=== PATIENT | female | born 1940 ===

== ENCOUNTER 2017-07-19 13:49 | Outpatient (CLI) | payer MEDICARE ==
--- OUTSIDE RECORDS SUMMARY | 2017-07-19 15:43 | XMS | Clinical Summary ---
:1940 Author Organization [facility] Address [address] [place] [address] Phone Care Team Providers Name Role Phone , Primary Care Provider Unavailable Allergies Not on File Current Medications Not on file Active Problems Not on file Social History Tobacco Use Types Packs/Day Years Used Date Never Assessed Sex Assigned at Date Recorded Not on file Last Filed Vital Signs Not on file Plan of Treatment Not on file Results Not on filefrom Last 3 Months
--- NOTE | 2017-07-19 16:38 | SJPRAD ---
FRONTAL AND LATERAL IMAGING CHEST: 07/19/17 COMPARISON: None. HISTORY: Evaluate chest for surgical clearance. FINDINGS: There is no pneumothorax, pleural fluid, focal consolidation, or alveolar edema. Heart and mediastin al contours appear grossly unremarkable. IMPRESSION: No acute findings. POS: [facility]
== END 2017-07-19 13:50 | disposition home or self-care (01) ==
LOC: MWLC RAD 13:49
PROVIDERS: ATTEND Family Medicine
DX: Z01.810 Encounter for preprocedural cardiovascular examination (principal)

== ENCOUNTER 2017-09-17 16:47 | Inpatient (IN) | payer MEDICARE, OTHER ==
[2017-09-17] MEDS ORDERED: hydrALAZINE 20 MG/ML VIAL ONE (18:51)
[2017-09-17] MEDS ORDERED: cloNIDine 0.1 MG TAB ONE (20:04)
[2017-09-17 21:25] VITALS: BMI 36.9
[2017-09-17] MEDS ORDERED: Labetalol HCl 100 MG/20 ML VIAL SLOW IVP PRN (22:56)
[2017-09-17] MEDS ORDERED: Dextrose 50% Abboject 50 ML SYRINGE SLOW IVP PRN (22:56)
[2017-09-17] MEDS ORDERED: Ondansetron ODT 4 MG TAB PO PRN (22:56)
[2017-09-17] MEDS ORDERED: Furosemide 40 MG TAB PO SCH (22:56)
[2017-09-17] MEDS ORDERED: HYDROcodone/Acetaminophen 5/325 mg Tablet PO PRN (22:56)
[2017-09-17] MEDS ORDERED: Doxazosin Mesylate 4 MG TAB PO SCH (22:56)
[2017-09-17] MEDS ORDERED: HumaLOG 300 UNITS/3 ML VIAL SC PRN (22:56)
[2017-09-17] MEDS ORDERED: hydrALAZINE 25 MG TAB PO SCH (22:56)
[2017-09-17] MEDS ORDERED: Dextrose 5% in Water 1,000 ML IV PRN (22:56)
[2017-09-17] MEDS ORDERED: Acetaminophen 325 MG TAB PO PRN (22:56)
[2017-09-17] MEDS ORDERED: HYDROcodone/Acetaminophen 10/325 mg Tablet PO PRN (22:56)
[2017-09-17] MEDS ORDERED: Nitroglycerin 2% Ointment 1 INCH/1 GM Packet TOP SCH (23:00)
[2017-09-17] MEDS: Enoxaparin Sodium 30 MG/0.3 ML SYRINGE SC SCH (23:32)
[2017-09-17 23:55] LABS: CKMB 0.8 ng/mL (0-6.6); Troponin I 0.013 ng/mL (< 0.028)
--- NOTE | 2017-09-18 02:46 | HP ---
DATE OF ADMISSION: 09/17/2017 TIME OF SERVICE: 2200 hours. PRIMARY CARE PHYSICIAN: Juana Sam MD PRIMARY AREA SUPERVISOR: Ganga Garcia MD CHIEF COMPLAINT: Slurred speech and headache. HISTORY OF PRESENT ILLNESS: Ms. Jurado is a 77-year-old female with a history of breast cancer, di abetes, hypertension, chronic kidney disease, hyperlipidemia who presented to the emergency [facility] in [employer] today for really headache. She states 3 days ago, she had a 50-minute episode, where her speech was kind of slurred. After that resolved, she had a headache that persisted for the better part of 24 hours. The headache finally r esolved and was gone until this morning. Because of the severity last time, [facility]. In retrospect, she notes that her blood pressure has slowly been getting higher and higher over the l ast couple of weeks. On arrival to the outside ER, her blood pressure was elevated. A CT scan of the brain was done and was negative for acute intracranial abnormalities. She was sent here for TIA workup. On arrival, she was noted to have hypertensive urgency and likely hypertensive encephalopathy causing her symptoms. Currently, she has no headache. She has no neurologic deficits. She denies any numb ness, tingling, double vision. No dizziness or weakness. PAST MEDICAL HISTORY: 1. Breast cancer x2 spots in the same breast, currently in remission. 2. Diabetes mellitus type 2, currently off medications. 3. Hypertension, decreasingly controlled. 4. Uterine cancer, status post hysterectomy and in remission. 5. Hyperlipidemia. 6. Chronic kidney disease 3, followed by Dr. Garcia. PAST SURGICAL HISTORY: Include, 1. Bilateral cataracts. She is currently waiting to have these done, has not actually had her catar acts removed. 2. Colon resection. She had about 8 inches removed back in 2011. 3. Left breast lumpectomy in 2007 and left radical mastectomy in 2008. 4. Cholecystectomy in 1962. 5. Hysterectomy in 2004 with bilateral salpingo-oophorectomy. HOME MEDICATIONS: 1. Verapamil 240 mg daily, took this morning. 2. Hydralazine 100 mg p.o. t.i.d., took this morning. 3. Doxazosin 8 mg p.o. at bedtime. 4. Aspirin 81 mg daily. 5. Caltrate 1000 mg daily. 6. Flaxseed 1300 mg daily. 7. Multivitamin daily. ALLERGIES: PENICILLIN causes hives. FAMILY HISTORY: Negative for clotting or bleeding disorder. No immune dysfunction. SOCIAL HISTORY: Significant for a rare social alcohol. No IV drug use. She quit smoking greater th an 10 years ago, smoked about a pack per day for some 30+ years. She wishes to be a full code. Her , Dante, is her medical decision maker should she become incapacitated. His home number is [phone] and his cell phone number is [phone]. He is not currently present. REVIEW OF SYSTEMS: Ten-point review of systems was performed, negative for all other systems except as stated as per HPI. PHYSICAL EXAMINATION: VITAL SIGNS: Temperature 97.8, pulse 60, blood pressure 201/67, respiratory rate 20, saturating 95% on room air. GENERAL: She is awake. She is alert. She is oriented x3. She is an obese white female, appears to be in no distress. HEENT: She is normocephalic and atraumatic. Pupils equal and reactive to light bilaterally. Mucous membranes moist. She has no visible lesion. No thrush. NECK: Supple. She has no lymphadenopathy. No JVD. No thyromegaly. Normal carotid upstrokes. The re are no bruits. CHEST: Lungs are clear. LUNGS: She has good air movement. Symmetrical chest excursion. No wheezes. No rales. No rhonchi. CARDIOVASCULAR: She has normal S1 and S2. She has normal cardiac and regular. She has no audible m urmurs. ABDOMEN: Obese. It is nontender and nondistended. No rebound, rigidity, or guarding. She has norm oactive bowel sounds present in all 4 quadrants. EXTREMITIES: Showed 2+ edema, which she has had for some time to just below her knee. SKIN: Otherwise warm, moist, and well perfused without any other rashes or lesions. MUSCULOSKELETAL: Normal to inspection. She has no inflammation and no palpable effusions. NEUROLOGIC: Her cranial nerves II-XII are grossly intact. She has a good conjugate gaze. She has n o nystagmus. She has 5/5 strength in all 4 of her extremities. She has normal speech pattern, and n o focal deficits. LABORATORY DATA: Sodium 141, potassium 3.9, chloride was not done, bicarbonate 27. BUN 24 and creat inine 1.8, which is at her baseline. Glucose is 170. CBC showed a white count of 9.1, hemoglobin 12 .9, hematocrit 38.5, and platelets 193,000. Of note, I did not actually see her labs, these were wha t was recorded in the emergency department note as the lab result sheets were not sent with her. RADIOGRAPHIC STUDIES: She had CT scan of the brain that was negative for acute intracranial abnormal ities. ASSESSMENT AND PLAN: 1. Hypertensive urgency: Blood pressure on arrival here was 201/67. They have now been in the 240s systolic. I have restarted her hydralazine 100 mg p.o. t.i.d. with a notice, she got her doxazosin tonight. She had her verapamil this morning. We will start her on Lasix here at 40 mg now and 40 mg daily starting in the morning. We will also use nitroglycerin paste 1 inch to her chest wall q.8 ho urs to be removed once the pressure gets more normalized. We have p.r.n. labetalol 10 mg q.4 hours p .r.n. elevated systolic pressure. Her storage receipt poster is Dr. Talha Beltran. She states she had a str ess test/PET scan done in his office about a month ago and has not got the results of that yet. Give n her elevated pressures, I suspect she may have a component of diastolic dysfunction. We will get a 2D echocardiogram. 2. Diabetes mellitus type 2. She is currently on no medications. Follow a diabetic diet and q.i.d. before meals/ at bedtime Accu-Cheks with a low-dose sliding scale insulin. 3. Hypertension, as above. 4. Hyperlipidemia. Not on any medications. 5. Chronic kidney disease 3. Creatinine at baseline of 1.8. We will avoid RICK inhibitors for now d ue to her elevated creatinine, even though at the baseline. 6. I do not believe the patient had a transient ischemic attack. I do think she had hypertensive ur gency with hypertensive encephalopathy that is improving as the pressure gets treated.
[2017-09-18 05:31] LABS: #Basophils 0.1 thou/uL (0.0-0.2); #Eosinphils 0.3 thou/uL (0.0-0.7); #Lymphocytes 1.7 thou/uL (1.20-3.40); #Monocytes 0.6 thou/uL (0.11-0.59); #Neutrophils 5.9 thou/uL (1.40-6.50); %Basophils 0.7 % (0.0-1.0); %Eosinophils 3.1 % (0.0-10.0); %Lymphocytes 20.3 % (21.0-51.0); %Monocytes 6.9 % (0.0-10.0); Mean Corpuscular HGB CONC 32.6 g/dL (32.0-36.0); Mean Corpuscular Hemoglobin 31.4 pg (27.0-31.0); Mean Corpuscular Volume 96.4 fl (81.0-99.0); Mean Platelet Volume 7.7 fL (7.4-10.4); Platelet Count 216 thou/uL (130-400); RBC Distribution Width 12.4 % (11.5-14.5); Red Blood Cell (RBC) Count 3.82 mill/uL (4.20-5.40); White Blood Cell (WBC) Count 8.5 thou/uL (4.8-10.8)
[2017-09-18 05:39] LABS: Anion Gap 10 mmol/L (10-20); BUN (Urea Nitrogen) 20 mg/dL (9.8-20.1); Calc. Creatinine Clearance 38 mL/min (70-130); Calcium 9.2 mg/dL (7.8-10.44); Carbon Dioxide 30 mmol/L (23-31); Chloride 103 mmol/L (98-107); Estimated GFR-MDRD 29; Glucose 131 mg/dL (83-110); Magnesium 1.9 mg/dL (1.6-2.6); Potassium 3.4 mmol/L (3.5-5.1); Sodium 140 mmol/L (136-145)
[2017-09-18] MEDS ORDERED: Nitroglycerin 2% Ointment 1 INCH/1 GM Packet TOP SCH (06:00)
[2017-09-18] MEDS: hydrALAZINE 25 MG TAB PO SCH ×3 (06:20→21:31)
[2017-09-18 07:29] LABS: CKMB 0.7 ng/mL (0-6.6); Troponin I 0.022 ng/mL (< 0.028)
[2017-09-18] MEDS: Labetalol 100 MG TAB PO SCH ×3 (08:25→21:32)
[2017-09-18] MEDS: Aspirin 325 MG TAB PO SCH (08:25)
[2017-09-18] MEDS: Enoxaparin Sodium 30 MG/0.3 ML SYRINGE SC SCH ×2 (08:25→22:00)
[2017-09-18] MEDS: Minoxidil 10 MG TAB PO SCH (08:27)
[2017-09-18] MEDS: Lisinopril 5 MG TAB PO SCH (08:27)
[2017-09-18] MEDS: Famotidine 20 MG TAB PO SCH ×2 (08:27→21:59)
[2017-09-18] MEDS ORDERED: Lisinopril 5 MG TAB PO SCH (09:00)
[2017-09-18] MEDS ORDERED: Furosemide 20 MG TAB PO SCH ×2 (09:00)
--- NOTE | 2017-09-18 13:26 | PDOC.PN ---
- Subjective Encounter Start Date: 09/18/17 Encounter Start Time: 09:15 Subjective: no sob or headache -: feels weak, no chest pain/dizziness - Objective Resuscitation Status: Resuscitation Status FULL:Full Resuscitation MAR Reviewed: Yes Vital Signs & Weight: Vital Signs (12 hours) Temp Pulse Resp BP BP Pulse Ox 09/18/17 12:00 97.4 F L 60 14 105/52 L 93 L 09/18/17 10:28 60 117/55 L 09/18/17 08:27 63 09/18/17 08:25 63 200/81 H 09/18/17 07:47 96.8 F L 63 18 200/81 H 93 L 09/18/17 06:20 58 L 197/81 H 09/18/17 05:40 96.2 F L 58 L 18 191/76 H 95 09/18/17 04:45 97.0 F L 77 22 H 136/65 95 Weight Weight 202 lb I&O: 09/17/17 09/18/17 09/19/17 06:59 06:59 06:59 Intake Total 400 Output Total 1000 Balance -600 Result Diagrams: 09/18/17 04:29 09/18/17 04:29 Additional Labs: Accuchecks 09/18/17 09/18/17 11:03 06:23 POC Glucose 210 H 117 H Phys Exam - Physical Examination HEENT: PERRLA, moist MMs Neck: no JVD, supple Respiratory: no wheezing, no rales Cardiovascular: RRR, no significant murmur Gastrointestinal: soft, non-tender, positive bowel sounds Musculoskeletal: no edema, pulses present Neurological: non-focal, moves all 4 limbs Dx/Plan (1) Hypertensive urgency Code(s): I16.0 - HYPERTENSIVE URGENCY Status: Acute (2) DM type 2 (diabetes mellitus, type 2) Status: Chronic Qualifiers: Diabetes mellitus complication status: with kidney complications Diabetes mellitus complication detail: with chronic kidney disease Diabetes mellitus detention insulin use: without intermediate teacher use Chronic kidney disease stage: stage 3 (moderate) Qualified Code(s): E11.22 - Type 2 diabetes mellitus with diabetic chronic kidney disease; N18.3 - Chronic kidney disease, stage 3 ( moderate); N18.3 - Chronic kidney disease, stage 3 (moderate) (3) Dyslipidemia Code(s): E78.5 - HYPERLIPIDEMIA, UNSPECIFIED Status: Chronic (4) CKD (chronic kidney disease) Code(s): N18.9 - CHRONIC KIDNEY DISEASE, UNSPECIFIED Status: Chronic Qualifiers: Chronic kidney disease stage: stage 3 (moderate) Qualified Code(s): N18.3 - Chronic kidney disease, stage 3 (moderate) - Plan add labetalol 50mg tid, minoxidil, lisinopril -: watch for heart rate -: lasix prn, creatinine around 1.7 -: will dc nitropaste -: had recent stress test * . Review of Systems - Medications/Allergies Allergies/Adverse Reactions: Allergies Allergy/AdvReac Type Severity Reaction Status Date / Time Penicillins Allergy Verified 09/17/17 21:24 Medications: Current Medications Acetaminophen (Tylenol) 650 mg PO Q4H PRN PRN Reason: Headache/Fever or Pain Last Admin: 09/18/17 08:24 Dose: 650 mg Hydrocodone Bitart/Acetaminophen ([place] 10/325) 1 tab PO Q4H PRN PRN Reason: Moderate Pain (4-6) Hydrocodone Bitart/Acetaminophen ([place] 5/325) 1 tab PO Q4H PRN PRN Reason: Moderate Pain (4-6) Aspirin (Aspirin) 325 mg PO DAILY [facility] Last Admin: 09/18/17 08:25 Dose: 325 mg Dextrose/Water (Dextrose 50%) 25 gm SLOW IVP PRN PRN PRN Reason: Hypoglycemia Doxazosin Mesylate (Cardura) 8 mg PO QPM [facility] Enoxaparin Sodium (Lovenox) 30 mg SC NOW [facility] Stop: 09/18/17 22:57 Last Admin: 09/17/17 23:32 Dose: 30 mg Enoxaparin Sodium (Lovenox) 30 mg SC 0900 [facility] Last Admin: 09/18/17 08:25 Dose: 30 mg Famotidine (Pepcid) 20 mg PO BID [facility] Last Admin: 09/18/17 08:27 Dose: 20 mg Glucagon (Glucagon) 1 mg IM PRN PRN PRN Reason: Hypoglycemia Hydralazine HCl (Apresoline) 100 mg PO TID [facility] Last Admin: 09/18/17 06:20 Dose: 100 mg Dextrose/Water (D5w) 1,000 mls @ 0 mls/hr IV .Q0M PRN; As Directed PRN Reason: Hypoglycemia Insulin Human Lispro (Humalog) 0 units SC .MILD SLIDING SCALE PRN PRN Reason: Mild Correctional Scale Labetalol HCl (Normodyne) 10 mg SLOW IVP Q4H PRN PRN Reason: SBP Greater Than 180 Labetalol HCl (Normodyne) 50 mg PO TID [facility] Last Admin: 09/18/17 08:25 Dose: 50 mg Lisinopril (Zestril) 5 mg PO DAILY [facility] Last Admin: 09/18/17 08:27 Dose: 5 mg Minoxidil (Minoxidil) 10 mg PO DAILY [facility] Last Admin: 09/18/17 08:27 Dose: 10 mg Nitroglycerin (Nitro-Bid 2% Ointment) 1 inch TOP Q8HR [facility] Last Admin: 09/18/17 05:46 Dose: 1 inch Ondansetron HCl (Zofran Odt) 4 mg PO Q6H PRN PRN Reason: Nausea/Vomiting Sodium Chloride (Flush - Normal Saline) 10 ml IVF Q12HR [facility] Sodium Chloride (Flush - Normal Saline) 10 ml IVF PRN PRN PRN Reason: Saline Flush Verapamil HCl (Calan Sr) 240 mg PO DAILY [facility] Last Admin: 09/18/17 08:26 Dose: 240 mg
[2017-09-18 15:34] LABS: CKMB 0.7 ng/mL (0-6.6); Troponin I 0.014 ng/mL (< 0.028)
[2017-09-18] MEDS: Doxazosin Mesylate 4 MG TAB PO SCH (21:58)
[2017-09-19] MEDS: Aspirin 325 MG TAB PO SCH (08:54)
[2017-09-19] MEDS: Famotidine 20 MG TAB PO SCH ×2 (08:55→23:32)
[2017-09-19] MEDS: Labetalol 100 MG TAB PO SCH ×3 (08:55→23:33)
[2017-09-19] MEDS: Enoxaparin Sodium 30 MG/0.3 ML SYRINGE SC SCH (08:55)
[2017-09-19] MEDS: Lisinopril 5 MG TAB PO SCH (08:56)
[2017-09-19] MEDS: Minoxidil 10 MG TAB PO SCH (08:56)
[2017-09-19 11:02] LABS: #Eosinphils 0.2 thou/uL (0.0-0.7); #Lymphocytes 1.5 thou/uL (1.20-3.40); #Monocytes 0.7 thou/uL (0.11-0.59); #Neutrophils 6.7 thou/uL (1.40-6.50); %Basophils 0.5 % (0.0-1.0); %Eosinophils 2.1 % (0.0-10.0); %Lymphocytes 16.8 % (21.0-51.0); %Monocytes 7.8 % (0.0-10.0); %Neutrophils 72.9 % (42.0-75.0); Hemoglobin 12.3 g/dL (12.0-16.0); Mean Corpuscular Hemoglobin 31.7 pg (27.0-31.0); Mean Corpuscular Volume 96.1 fl (81.0-99.0); Mean Platelet Volume 8.3 fL (7.4-10.4); Platelet Count 221 thou/uL (130-400); RBC Distribution Width 12.4 % (11.5-14.5); Red Blood Cell (RBC) Count 3.89 mill/uL (4.20-5.40); White Blood Cell (WBC) Count 9.2 thou/uL (4.8-10.8)
[2017-09-19 11:30] LABS: Anion Gap 14 mmol/L (10-20); BUN (Urea Nitrogen) 30 mg/dL (9.8-20.1); Calc. Creatinine Clearance 16 mL/min (70-130); Calcium 8.9 mg/dL (7.8-10.44); Carbon Dioxide 28 mmol/L (23-31); Chloride 97 mmol/L (98-107); Estimated GFR-MDRD 10; Glucose 158 mg/dL (83-110); Sodium 135 mmol/L (136-145)
--- NOTE | 2017-09-19 11:59 | PDOC.PN ---
- Subjective Encounter Start Date: 09/19/17 Encounter Start Time: 09:30 Subjective: had an episode of dizzy spell with PT today -: no sob or chest pain - Objective Resuscitation Status: Resuscitation Status FULL:Full Resuscitation MAR Reviewed: Yes Vital Signs & Weight: Vital Signs (12 hours) Temp Pulse Resp BP Pulse Ox 09/19/17 11:48 97.5 F L 56 L 16 109/50 L 92 L 09/19/17 08:56 77 09/19/17 08:55 77 09/19/17 08:41 97.9 F 77 16 119/56 L 93 L 09/19/17 04:00 98.2 F 84 9 L 122/54 L 97 09/19/17 00:00 82 20 92/54 L 94 L Weight Weight 201 lb 9.6 oz I&O: 09/18/17 09/19/17 09/20/17 06:59 06:59 06:59 Intake Total 400 1250 Output Total 1000 550 Balance -600 700 Result Diagrams: 09/19/17 09:46 09/19/17 09:46 Additional Labs: Accuchecks 09/19/17 09/18/17 09/18/17 06:40 21:10 16:17 POC Glucose 133 H 125 H 182 H Phys Exam - Physical Examination HEENT: PERRLA, moist MMs Neck: no JVD, supple Respiratory: no wheezing, no rales Cardiovascular: RRR, no significant murmur Gastrointestinal: soft, non-tender, positive bowel sounds Musculoskeletal: no edema, pulses present Neurological: non-focal, moves all 4 limbs Psychiatric: A&O x 3 Dx/Plan (1) CARLOS MANUEL (acute kidney injury) Code(s): N17.9 - ACUTE KIDNEY FAILURE, UNSPECIFIED Status: Acute (2) Hypertensive urgency Code(s): I16.0 - HYPERTENSIVE URGENCY Status: Acute (3) DM type 2 (diabetes mellitus, type 2) Status: Chronic Qualifiers: Diabetes mellitus complication status: with kidney complications Diabetes mellitus complication detail: with chronic kidney disease Diabetes mellitus residential insulin use: without residential use Chronic kidney disease stage: stage 3 (moderate) Qualified Code(s): E11.22 - Type 2 diabetes mellitus with diabetic chronic kidney disease; N18.3 - Chronic kidney disease, stage 3 ( moderate); N18.3 - Chronic kidney disease, stage 3 (moderate) (4) Dyslipidemia Code(s): E78.5 - HYPERLIPIDEMIA, UNSPECIFIED Status: Chronic (5) CKD (chronic kidney disease) Code(s): N18.9 - CHRONIC KIDNEY DISEASE, UNSPECIFIED Status: Chronic Qualifiers: Chronic kidney disease stage: stage 3 (moderate) Qualified Code(s): N18.3 - Chronic kidney disease, stage 3 (moderate) - Plan d/w , gentle iv hydration, cr this am is 4 up from 1.7 -: dc lisinopril, lovenox and hydralazine for now -: htn is labile -: tx to med floor -: bmp in am * . Review of Systems - Medications/Allergies Allergies/Adverse Reactions: Allergies Allergy/AdvReac Type Severity Reaction Status Date / Time Penicillins Allergy Verified 09/17/17 21:24 Medications: Current Medications Acetaminophen (Tylenol) 650 mg PO Q4H PRN PRN Reason: Headache/Fever or Pain Last Admin: 09/18/17 08:24 Dose: 650 mg Hydrocodone Bitart/Acetaminophen ([place] 10/325) 1 tab PO Q4H PRN PRN Reason: Moderate Pain (4-6) Hydrocodone Bitart/Acetaminophen ([place] 5/325) 1 tab PO Q4H PRN PRN Reason: Moderate Pain (4-6) Aspirin (Aspirin) 325 mg PO DAILY [facility] Last Admin: 09/19/17 08:54 Dose: 325 mg Dextrose/Water (Dextrose 50%) 25 gm SLOW IVP PRN PRN PRN Reason: Hypoglycemia Doxazosin Mesylate (Cardura) 8 mg PO QPM [facility] Last Admin: 09/18/17 21:58 Dose: 8 mg Famotidine (Pepcid) 20 mg PO BID [facility] Last Admin: 09/19/17 08:55 Dose: 20 mg Glucagon (Glucagon) 1 mg IM PRN PRN PRN Reason: Hypoglycemia Heparin Sodium (Porcine) (Heparin) 5,000 units SC BID [facility] Dextrose/Water (D5w) 1,000 mls @ 0 mls/hr IV .Q0M PRN; As Directed PRN Reason: Hypoglycemia Sodium Chloride (Normal Saline 0.9%) 1,000 mls @ 70 mls/hr IV .[id number] [facility] Insulin Human Lispro (Humalog) 0 units SC .MILD SLIDING SCALE PRN PRN Reason: Mild Correctional Scale Last Admin: 09/18/17 17:48 Dose: 2 unit Labetalol HCl (Normodyne) 10 mg SLOW IVP Q4H PRN PRN Reason: SBP Greater Than 180 Labetalol HCl (Normodyne) 50 mg PO TID [facility] Last Admin: 09/19/17 08:55 Dose: 50 mg Minoxidil (Minoxidil) 10 mg PO DAILY [facility] Last Admin: 09/19/17 08:56 Dose: 10 mg Ondansetron HCl (Zofran Odt) 4 mg PO Q6H PRN PRN Reason: Nausea/Vomiting Sodium Chloride (Flush - Normal Saline) 10 ml IVF Q12HR [facility] Last Admin: 09/19/17 08:56 Dose: Not Given Sodium Chloride (Flush - Normal Saline) 10 ml IVF PRN PRN PRN Reason: Saline Flush Verapamil HCl (Calan Sr) 240 mg PO DAILY [facility] Last Admin: 09/19/17 08:56 Dose: 240 mg
[2017-09-19] MEDS ORDERED: Sodium Chloride 0.9% 1,000 ML IV SCH (12:00)
[2017-09-19] MEDS: Sodium Chloride 0.9% 1,000 ML IV SCH ×2 (14:23→23:40)
--- NOTE | 2017-09-19 14:54 | CON ---
DATE OF CONSULTATION: 09/19/2017 HISTORY OF PRESENT ILLNESS: Ms. Jurado is a 77-year-old white female who was admitted for labile h ypertension. She initially presented with history of slurred speech and headache. A CT scan of the brain was done, which showed no acute intracranial abnormalities. She was admitted for TIA workup. We are now being consulted for her acute kidney injury on top of her chronic renal failure. Please n ote that back in 04/2017, creatinine was noted at 1.84. She has a working diagnosis of renal dysfunc tion from diabetic nephropathy. REVIEW OF SYSTEMS: Positive for headache. Positive slurred speech. No nausea, no vomiting, no sync opal episode, no diarrhea, no constipation, no abdominal pain, occasional headache, no diplopia, no f ever or chills, no chest pain, no shortness of breath. Appetite and energy level is fair. No gross hematuria, no dysuria, no urinary frequency. MEDICATIONS: Tylenol 650 mg q.4 p.r.n., [place] 5/325 q.4 p.r.n., aspirin 325 mg once a day, Cardura 8 mg at bedtime, famotidine 20 mg tab b.i.d., heparin 5000 units subcu b.i.d., Humalog sliding scale, minoxidil 10 mg tab daily, Normodyne 15 mg p.o. t.i.d., normal saline at 70 mL per hour, Calan SR 240 mg once a day. PAST MEDICAL HISTORY: 1. Hypertension. 2. Chronic renal failure from hypertensive nephropathy. 3. Left breast cancer in remission, endometrial cancer in remission, basal cell carcinoma, colon fidel or - benign. 4. Type 2 diabetes mellitus. PAST SURGICAL HISTORY: 1. Status post open cholecystectomy. 2. Status post colon resection. 3. Status post colonoscopy. 4. Status post breast biopsy. 5. Status post lumpectomy. 6. Status post hysterectomy with BSO. 7. Status post left breast biopsy. SOCIAL HISTORY: Three children with two . 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 Education: Some college courses. Smoked for 25 years, two packs a day. Alcohol rar aaron. No IV drug abuse. No blood transfusion. ALLERGIES: PENICILLIN. TRAUMA: None. IMMUNIZATIONS: Up to date. HOSPITALIZATIONS: Please see past medical history. FAMILY HISTORY: No family history of ESRD. PHYSICAL EXAMINATION: VITAL SIGNS: Blood pressure 109/50, heart rate 56, respiratory rate 16, temperature 97.5, pulse ox 9 2%. GENERAL: Noted to be awake, comfortable, not in overt distress. SKIN: Adequate turgor. HEENT: She has pinkish conjunctivae, anicteric sclerae. NECK: No neck mass, no carotid bruits, no JVD. CHEST: No deformities. LUNGS: Clear breath sounds. No wheezing, no crackles. HEART: Normal sinus rhythm. No murmur, no gallops, no rubs. ABDOMEN: Globular, soft, nontender, no masses. EXTREMITIES: No edema, no deformities. NEUROLOGIC: Moving all extremities. No tremors, no asterixis. Oriented to 3 spheres. LABORATORY: On 09/19/2017, white count 9.2, hemoglobin 12.3. Sodium 125, potassium 4, chloride 97, carbon dioxide 28, BUN 30, creatinine 4.17, GFR 10 mL per minute, glucose 158, calcium 8.9. On 09/18, BUN is 20 and creatinine 1.72. ASSESSMENT AND PLAN: 1. Acute kidney injury - this could simply be a hemodynamically mediated renal dysfunction. The pat ient's blood pressure has been running on the low end of normal. I agree with current empiric volume repletion. I would suggest we increase normal saline to 100 mL per hour. No indication for any ahyden lytic intervention. I will consider checking urinalysis as well as on renal ultrasound with this pat ient due to the acute kidney injury. 2. Hypertension, currently stable. Continue current blood pressure medications for the moment. Overall, I agree with current management.
--- NOTE | 2017-09-19 18:12 | ULT ---
ULTRASOUND RETROPERITONEUM COMPLETE: (RENAL) 09/19/17 HISTORY: 77-year-old female with renal failure. COMPARISON: None. FINDINGS: Right kidney measures 12.5 x 5.5 x 6 cm. Left kidney measures 13 x 7 x 7.5 cm. Bilateral renal parenchyma is thin, typical for this age group. There is no hydronephrosis bilaterally. 2 x 1.5 cm cortical exophytic cyst at right renal lower pole. 7 x 6.5 x 5 cm partially exophytic large cyst at left renal mid pole, straddling the renal sinus and cortex. 3 x 2.5 x 2 cm exophytic cyst protruding from left renal lower pole cortex. Urinary bladder volume is small, 5 mL volume, at the time of this scan. IMPRESSION: 1. No hydronephrosis. 2. Bilateral renal cysts, at least three. 3. Small bladder volume. KESHAWN Jay POS: [facility]
[2017-09-19] MEDS: Heparin 5,000 UNITS/ML VIAL SC SCH (23:32)
[2017-09-19] MEDS: Doxazosin Mesylate 4 MG TAB PO SCH (23:36)
[2017-09-20 03:41] LABS: Bilirubin Moderate (Negative); Blood, Urine Negative (Negative); Clarity TURBID (Clear); Glucose, Urine (Dipstick) Negative (Negative); Leukocyte Large (Negative); Nitrite Negative (Negative); Protein, Urine (Dipstick) 100 mg/dL (Neg-Trace); Specific Gravity, Urine 1.027 (1.002-1.036); Urobilinogen 0.2 mg/dL (0.2-1.0)
[2017-09-20 03:44] LABS: Bacteria/HPF 4+ HPF (None Seen); Hyaline Casts/LPF 4-6 HYALINE CAST LPF (0-3 Hyaline); Pathc Cast-AUWi Flag 1.03 (0-2.49)
[2017-09-20 03:51] LABS: RBC/HPF 0-3 HPF (0-3); Yeast-All Forms 2+ HPF (None Seen)
[2017-09-20 04:00] LABS: Creatinine, Urine 232.85 mg/dL (47-110)
[2017-09-20 08:41] LABS: #Basophils 0.1 thou/uL (0.0-0.2); #Eosinphils 0.2 thou/uL (0.0-0.7); #Lymphocytes 1.5 thou/uL (1.20-3.40); #Monocytes 0.6 thou/uL (0.11-0.59); #Neutrophils 5.7 thou/uL (1.40-6.50); %Basophils 1.1 % (0.0-1.0); %Eosinophils 2.6 % (0.0-10.0); %Lymphocytes 18.2 % (21.0-51.0); %Monocytes 7.8 % (0.0-10.0); %Neutrophils 70.3 % (42.0-75.0); Hemoglobin 11.9 g/dL (12.0-16.0); Mean Corpuscular HGB CONC 33.6 g/dL (32.0-36.0); Mean Corpuscular Volume 95.3 fl (81.0-99.0); Mean Platelet Volume 7.7 fL (7.4-10.4); Platelet Count 197 thou/uL (130-400); RBC Distribution Width 12.2 % (11.5-14.5); Red Blood Cell (RBC) Count 3.72 mill/uL (4.20-5.40); White Blood Cell (WBC) Count 8.1 thou/uL (4.8-10.8)
[2017-09-20 09:00] LABS: Anion Gap 17 mmol/L (10-20); BUN (Urea Nitrogen) 38 mg/dL (9.8-20.1); Calc. Creatinine Clearance 13 mL/min (70-130); Calcium 7.9 mg/dL (7.8-10.44); Carbon Dioxide 20 mmol/L (23-31); Chloride 98 mmol/L (98-107); Estimated GFR-MDRD 8; Glucose 127 mg/dL (83-110); Potassium 3.7 mmol/L (3.5-5.1); Sodium 131 mmol/L (136-145)
--- NOTE | 2017-09-20 09:15 | PRG ---
DATE OF SERVICE: 09/20/2017 SUBJECTIVE: Ms. Jurado is a 77-year-old white female with known history of chronic renal failure a nd was seen for an acute kidney injury. Creatinine was noted at 4.17 when I initially saw her. She was started on IV hydration. She is currently tolerating it. I did notice that his blood pressure was running on the low side. M y bias is to probably stop all blood pressure medications. We will continue current IV hydration. The patient denies any chest pain or shortness of breath. PHYSICAL EXAMINATION: VITAL SIGNS: Blood pressure 111/51, heart rate is 75, respiratory rate 18, pulse ox 92%, temperature 97.4. GENERAL: Noted to be awake, alert, comfortable, obese. SKIN: Decreased turgor. HEENT: Pinkish conjunctivae. Anicteric sclerae. NECK: No neck mass, no carotid bruits, no JVD. CHEST: No deformities. LUNGS: Clear breath sounds. No wheezing, no crackles. HEART: Normal sinus rhythm. No murmur, no gallops or rubs. ABDOMEN: Globular, soft, nontender, no masses. EXTREMITIES: No edema. MEDICATIONS: 09/20/2017 - Reviewed. LABORATORY: 09/20/2017 - White count 8.1, hemoglobin 11.9. Sodium 131, potassium 3.7, chloride 98, carbon dioxide 20, BUN 38, creatinine 5.07. GFR 18 mL per minute, glucose 127, calcium 7.9. Urinaly sis shows specific gravity 1.027. There are some white cells, but there is no granular cast to sugge st acute tubular necrosis. Urine sodium was noted at 32 and FENA is calculated at less than 1%. ASSESSMENT AND PLAN: 1. Acute kidney injury on top of her chronic renal failure, most likely a superimposed prerenal azot emia. Continue IV hydration of normal saline 100 mL per hour. We will discontinue all blood pressur e medications for the moment. There is no indication for any dialytic intervention with this patient . 2. Hypertension. We will stop BP meds since the blood pressure is on the low side. Overall, I agree with current management. Recheck base met and CBC in the a.m.
[2017-09-20] MEDS: Labetalol 100 MG TAB PO SCH (09:48)
[2017-09-20] MEDS: Heparin 5,000 UNITS/ML VIAL SC SCH ×2 (09:48→21:17)
[2017-09-20] MEDS: Aspirin 325 MG TAB PO SCH (09:48)
[2017-09-20] MEDS: Famotidine 20 MG TAB PO SCH ×2 (09:49→21:17)
[2017-09-20] MEDS: Sodium Chloride 0.9% 1,000 ML IV SCH ×3 (09:50→21:22)
[2017-09-20] MEDS ORDERED: cefTRIAXone\\ROCEPHIN 1 GM in Sodium Chloride 0.9% 100 ML IVPB SCH (11:45)
--- NOTE | 2017-09-20 11:47 | PDOC.PN ---
- Subjective Encounter Start Date: 09/20/17 Encounter Start Time: 10:00 Subjective: no sob or abd pain -: not dizzy, is amb in room - Objective Resuscitation Status: Resuscitation Status FULL:Full Resuscitation MAR Reviewed: Yes Vital Signs & Weight: Vital Signs (12 hours) Temp Pulse Resp BP Pulse Ox 09/20/17 09:48 75 09/20/17 07:57 97.4 F L 18 111/51 L 92 L 09/20/17 04:00 97.2 F L 75 12 112/57 L 93 L Weight Weight 201 lb 9.6 oz I&O: 09/19/17 09/20/17 09/21/17 06:59 06:59 06:59 Intake Total 1250 2671 Output Total 550 500 Balance 700 2171 Result Diagrams: 09/20/17 08:12 09/20/17 08:12 Additional Labs: Accuchecks 09/20/17 09/19/17 09/19/17 05:51 19:58 17:43 POC Glucose 120 H 171 H 143 H 09/19/17 11:40 POC Glucose 178 H Phys Exam - Physical Examination HEENT: PERRLA, moist MMs Neck: no JVD, supple Respiratory: no wheezing, no rales Cardiovascular: RRR, no significant murmur Gastrointestinal: soft, non-tender, no distention, positive bowel sounds Musculoskeletal: no edema, pulses present Neurological: non-focal, moves all 4 limbs Psychiatric: A&O x 3 Dx/Plan (1) CARLOS MANUEL (acute kidney injury) Code(s): N17.9 - ACUTE KIDNEY FAILURE, UNSPECIFIED Status: Acute (2) Hypertensive urgency Code(s): I16.0 - HYPERTENSIVE URGENCY Status: Resolved (3) DM type 2 (diabetes mellitus, type 2) Status: Chronic Qualifiers: Diabetes mellitus complication status: with kidney complications Diabetes mellitus complication detail: with chronic kidney disease Diabetes mellitus residential insulin use: without intermodal owner operator truck driver use Chronic kidney disease stage: stage 3 (moderate) Qualified Code(s): E11.22 - Type 2 diabetes mellitus with diabetic chronic kidney disease; N18.3 - Chronic kidney disease, stage 3 ( moderate); N18.3 - Chronic kidney disease, stage 3 (moderate) (4) Dyslipidemia Code(s): E78.5 - HYPERLIPIDEMIA, UNSPECIFIED Status: Chronic (5) CKD (chronic kidney disease) Code(s): N18.9 - CHRONIC KIDNEY DISEASE, UNSPECIFIED Status: Chronic Qualifiers: Chronic kidney disease stage: stage 3 (moderate) Qualified Code(s): N18.3 - Chronic kidney disease, stage 3 (moderate) (6) UTI (urinary tract infection) Status: Acute Qualifiers: Urinary tract infection type: acute cystitis Hematuria presence: without hematuria Qualified Code(s): N30.00 - Acute cystitis without hematuria - Plan will start ceftriaxone for uti -: creatinine has gone upto 5 now -: iv hydration -: dc all htn meds -: to amb in hallway as tolerated, tx to med floor * . Review of Systems - Medications/Allergies Allergies/Adverse Reactions: Allergies Allergy/AdvReac Type Severity Reaction Status Date / Time Penicillins Allergy Verified 09/17/17 21:24 Medications: Current Medications Acetaminophen (Tylenol) 650 mg PO Q4H PRN PRN Reason: Headache/Fever or Pain Last Admin: 09/18/17 08:24 Dose: 650 mg Hydrocodone Bitart/Acetaminophen ([place] 10/325) 1 tab PO Q4H PRN PRN Reason: Moderate Pain (4-6) Hydrocodone Bitart/Acetaminophen ([place] 5/325) 1 tab PO Q4H PRN PRN Reason: Moderate Pain (4-6) Aspirin (Aspirin) 325 mg PO DAILY [facility] Last Admin: 09/20/17 09:48 Dose: 325 mg Dextrose/Water (Dextrose 50%) 25 gm SLOW IVP PRN PRN PRN Reason: Hypoglycemia Famotidine (Pepcid) 20 mg PO BID [facility] Last Admin: 09/20/17 09:49 Dose: 20 mg Glucagon (Glucagon) 1 mg IM PRN PRN PRN Reason: Hypoglycemia Heparin Sodium (Porcine) (Heparin) 5,000 units SC BID [facility] Last Admin: 09/20/17 09:48 Dose: 5,000 units Dextrose/Water (D5w) 1,000 mls @ 0 mls/hr IV .Q0M PRN; As Directed PRN Reason: Hypoglycemia Sodium Chloride (Normal Saline 0.9%) 1,000 mls @ 125 mls/hr IV .Q8H [facility] Last Admin: 09/20/17 09:50 Dose: 1,000 mls Ceftriaxone Sodium 1 gm/ (Sodium Chloride) 100 mls @ 200 mls/hr IVPB Q24HR [facility] Insulin Human Lispro (Humalog) 0 units SC .MILD SLIDING SCALE PRN PRN Reason: Mild Correctional Scale Last Admin: 09/18/17 17:48 Dose: 2 unit Labetalol HCl (Normodyne) 10 mg SLOW IVP Q4H PRN PRN Reason: SBP Greater Than 180 Ondansetron HCl (Zofran Odt) 4 mg PO Q6H PRN PRN Reason: Nausea/Vomiting Sodium Chloride (Flush - Normal Saline) 10 ml IVF Q12HR [facility] Last Admin: 09/20/17 09:50 Dose: Not Given Sodium Chloride (Flush - Normal Saline) 10 ml IVF PRN PRN PRN Reason: Saline Flush
[2017-09-20] MEDS: cefTRIAXone\\ROCEPHIN 1 GM, Syringe 0.4 ML in Sterile Water 9.6 ML SLOW IVP SCH (14:36)
[2017-09-21 05:40] LABS: #Eosinphils 0.3 thou/uL (0.0-0.7); #Lymphocytes 1.4 thou/uL (1.20-3.40); #Monocytes 0.7 thou/uL (0.11-0.59); #Neutrophils 5.1 thou/uL (1.40-6.50); %Basophils 0.6 % (0.0-1.0); %Eosinophils 3.6 % (0.0-10.0); %Lymphocytes 18.5 % (21.0-51.0); %Monocytes 9.3 % (0.0-10.0); %Neutrophils 67.9 % (42.0-75.0); Hemoglobin 10.8 g/dL (12.0-16.0); Mean Corpuscular HGB CONC 33.8 g/dL (32.0-36.0); Mean Corpuscular Hemoglobin 32.1 pg (27.0-31.0); Mean Corpuscular Volume 94.8 fl (81.0-99.0); Platelet Count 192 thou/uL (130-400); RBC Distribution Width 12.1 % (11.5-14.5); Red Blood Cell (RBC) Count 3.37 mill/uL (4.20-5.40); White Blood Cell (WBC) Count 7.4 thou/uL (4.8-10.8)
[2017-09-21] MEDS: Sodium Chloride 0.9% 1,000 ML IV SCH ×3 (06:04→19:43)
[2017-09-21 06:12] LABS: Anion Gap 14 mmol/L (10-20); BUN (Urea Nitrogen) 39 mg/dL (9.8-20.1); Calc. Creatinine Clearance 14 mL/min (70-130); Calcium 7.7 mg/dL (7.8-10.44); Carbon Dioxide 21 mmol/L (23-31); Chloride 101 mmol/L (98-107); Estimated GFR-MDRD 9; Glucose 102 mg/dL (83-110); Potassium 3.8 mmol/L (3.5-5.1); Sodium 132 mmol/L (136-145)
[2017-09-21] MEDS: Aspirin 325 MG TAB PO SCH (09:56)
[2017-09-21] MEDS: Famotidine 20 MG TAB PO SCH ×2 (09:57→20:16)
[2017-09-21] MEDS: Heparin 5,000 UNITS/ML VIAL SC SCH ×2 (09:58→20:16)
--- NOTE | 2017-09-21 10:19 | PRG ---
DATE OF SERVICE: 09/21/2017 SERVICE: Renal Medicine. SUBJECTIVE: Ms. Jurado is a 77-year-old white female who was seen for her acute kidney injury on t op of her chronic renal failure. My feeling is that she may have prerenal azotemia. She was started on IV hydration. We have adjusted her blood pressure medications - currently on hold. No new complaints. No complaints of chest pain or shortness of breath. OBJECTIVE: VITAL SIGNS: Blood pressure is 137/65, heart rate 83, respiratory rate 20, temperature 98.1, pulse o x 90%. GENERAL: Awake, alert, comfortable, not in distress. SKIN: Adequate turgor. HEENT: Pinkish conjunctivae, anicteric sclerae. NECK: No neck mass, no carotid bruits, no JVD. CHEST: No deformities. LUNGS: Clear breath sounds. HEART: Normal sinus rhythm. No murmur, no gallops or rubs. ABDOMEN: Globular, soft, nontender, no masses. EXTREMITIES: No edema or deformities. MEDICATIONS: Of 09/21/2017 was reviewed. LABORATORY DATA: Of 09/21/2017, white count 7.4, hemoglobin 10.8, sodium 132, potassium 3.8, chlorid e 101, carbon dioxide 21, BUN 39, creatinine 4.67, glucose 102, calcium 7.7. ASSESSMENT AND PLAN: Acute kidney injury - prerenal azotemia on top of her chronic renal failure, mu ch improving renal function. Creatinine is improved from 5.07 to 4.67. Continue IV hydration, kate nue normal saline. Continue to hold off blood pressure medications. No indication for any dialytic intervention. Recheck basic met and CBC in a.m.
--- NOTE | 2017-09-21 12:49 | PDOC.PN ---
- Subjective Encounter Start Date: 09/21/17 Encounter Start Time: 11:15 Subjective: no sob, is tolerating iv fluids - Objective Resuscitation Status: Resuscitation Status FULL:Full Resuscitation MAR Reviewed: Yes Vital Signs & Weight: Vital Signs (12 hours) Temp Pulse Resp BP Pulse Ox 09/21/17 11:29 97.9 F 68 18 149/72 H 94 L 09/21/17 08:01 98.1 F 83 20 137/65 90 L 09/21/17 08:00 97.9 F 68 18 94 L 09/21/17 04:00 97.3 F L 79 18 136/67 93 L Weight Weight 201 lb 9.6 oz I&O: 09/20/17 09/21/17 09/22/17 06:59 06:59 06:59 Intake Total 2671 1700 Output Total 500 Balance 2171 1700 Result Diagrams: 09/21/17 04:45 09/21/17 04:45 Additional Labs: Accuchecks 09/21/17 09/21/17 09/20/17 11:12 05:23 21:17 POC Glucose 109 102 155 H 09/20/17 17:27 POC Glucose 123 H Phys Exam - Physical Examination HEENT: PERRLA, moist MMs Neck: no JVD, supple Respiratory: no wheezing, no rales Cardiovascular: RRR, no significant murmur Gastrointestinal: soft, non-tender, positive bowel sounds Musculoskeletal: no edema, pulses present Neurological: non-focal, moves all 4 limbs Psychiatric: A&O x 3 Dx/Plan (1) CARLOS MANUEL (acute kidney injury) Code(s): N17.9 - ACUTE KIDNEY FAILURE, UNSPECIFIED Status: Acute Comment: resolving (2) Hypertensive urgency Code(s): I16.0 - HYPERTENSIVE URGENCY Status: Resolved (3) DM type 2 (diabetes mellitus, type 2) Status: Chronic Qualifiers: Diabetes mellitus complication status: with kidney complications Diabetes mellitus complication detail: with chronic kidney disease Diabetes mellitus rodent exterminator insulin use: without rodent exterminator use Chronic kidney disease stage: stage 3 (moderate) Qualified Code(s): E11.22 - Type 2 diabetes mellitus with diabetic chronic kidney disease; N18.3 - Chronic kidney disease, stage 3 ( moderate); N18.3 - Chronic kidney disease, stage 3 (moderate) (4) Dyslipidemia Code(s): E78.5 - HYPERLIPIDEMIA, UNSPECIFIED Status: Chronic (5) CKD (chronic kidney disease) Code(s): N18.9 - CHRONIC KIDNEY DISEASE, UNSPECIFIED Status: Chronic Qualifiers: Chronic kidney disease stage: stage 3 (moderate) Qualified Code(s): N18.3 - Chronic kidney disease, stage 3 (moderate) (6) UTI (urinary tract infection) Status: Acute Qualifiers: Urinary tract infection type: acute cystitis Hematuria presence: without hematuria Qualified Code(s): N30.00 - Acute cystitis without hematuria - Plan is on NS @125mls/hr, watch for overload -: ceftriaxone for uti, await cs -: Creatinine has come down to 4.6 today -: to ambulate as tolerated in hallway, her sbp is better and should ambulate -: is off all anti htn meds now * . Review of Systems - Medications/Allergies Allergies/Adverse Reactions: Allergies Allergy/AdvReac Type Severity Reaction Status Date / Time Penicillins Allergy Verified 09/17/17 21:24 Medications: Current Medications Acetaminophen (Tylenol) 650 mg PO Q4H PRN PRN Reason: Headache/Fever or Pain Last Admin: 09/18/17 08:24 Dose: 650 mg Hydrocodone Bitart/Acetaminophen ([place] 10/325) 1 tab PO Q4H PRN PRN Reason: Moderate Pain (4-6) Hydrocodone Bitart/Acetaminophen ([place] 5/325) 1 tab PO Q4H PRN PRN Reason: Moderate Pain (4-6) Aspirin (Aspirin) 325 mg PO DAILY [facility] Last Admin: 09/21/17 09:56 Dose: 325 mg Dextrose/Water (Dextrose 50%) 25 gm SLOW IVP PRN PRN PRN Reason: Hypoglycemia Famotidine (Pepcid) 20 mg PO BID [facility] Last Admin: 09/21/17 09:57 Dose: 20 mg Glucagon (Glucagon) 1 mg IM PRN PRN PRN Reason: Hypoglycemia Heparin Sodium (Porcine) (Heparin) 5,000 units SC BID [facility] Last Admin: 09/21/17 09:58 Dose: 5,000 units Dextrose/Water (D5w) 1,000 mls @ 0 mls/hr IV .Q0M PRN; As Directed PRN Reason: Hypoglycemia Sodium Chloride (Normal Saline 0.9%) 1,000 mls @ 125 mls/hr IV .Q8H [facility] Last Admin: 09/21/17 09:59 Dose: 1,000 mls Ceftriaxone Sodium 1 gm/ (Syringe 0.4 ml/ Sterile Water) 10 mls @ 120 mls/hr SLOW IVP Q24HR@1300 [facility] Last Admin: 09/20/17 14:36 Dose: 10 mls Insulin Human Lispro (Humalog) 0 units SC .MILD SLIDING SCALE PRN PRN Reason: Mild Correctional Scale Last Admin: 09/18/17 17:48 Dose: 2 unit Labetalol HCl (Normodyne) 10 mg SLOW IVP Q4H PRN PRN Reason: SBP Greater Than 180 Ondansetron HCl (Zofran Odt) 4 mg PO Q6H PRN PRN Reason: Nausea/Vomiting Sodium Chloride (Flush - Normal Saline) 10 ml IVF Q12HR [facility] Last Admin: 09/21/17 09:57 Dose: Not Given Sodium Chloride (Flush - Normal Saline) 10 ml IVF PRN PRN PRN Reason: Saline Flush
[2017-09-21] MEDS: cefTRIAXone\\ROCEPHIN 1 GM, Syringe 0.4 ML in Sterile Water 9.6 ML SLOW IVP SCH (13:55)
[2017-09-22] MEDS: Sodium Chloride 0.9% 1,000 ML IV SCH ×3 (02:57→12:09)
[2017-09-22 06:15] LABS: Anion Gap 14 mmol/L (10-20); BUN (Urea Nitrogen) 34 mg/dL (9.8-20.1); Calc. Creatinine Clearance 18 mL/min (70-130); Calcium 7.9 mg/dL (7.8-10.44); Carbon Dioxide 18 mmol/L (23-31); Chloride 108 mmol/L (98-107); Estimated GFR-MDRD 12; Glucose 73 mg/dL (83-110); Potassium 4.2 mmol/L (3.5-5.1); Sodium 136 mmol/L (136-145)
--- NOTE | 2017-09-22 10:30 | PRG ---
DATE OF SERVICE: 09/22/2017 SERVICE: Renal Medicine. SUBJECTIVE: Ms. Jurado is a 77-year-old white female who was admitted for labile hypertension. Du ring the course of her hospitalization, she developed acute kidney injury. Initially the patient is to be a hemodynamically mediated renal dysfunction, empiric volume repletion was given. She is curre ntly at normal saline at 125 mL per hour. Renal function has slowly been improving. Please note, kathrin falk complaining of some mild congestion. Denies any chest pain, fever, chills or productive cough. OBJECTIVE: VITAL SIGNS: Blood pressure 163/70, heart rate 89, respiratory rate 20, temperature 97.8, pulse ox 9 4%. GENERAL: Noted to be awake, alert, comfortable, supine, obese, not in distress. SKIN: Adequate turgor. HEENT: She has pinkish conjunctivae, anicteric sclerae. NECK: No neck mass, no carotid bruits, no JVD. CHEST: No deformities. LUNGS: Decreased breath sounds, but no wheezing, no crackles. HEART: Normal sinus rhythm. No murmur, no gallops or rubs. ABDOMEN: Globular, soft, nontender, no masses. EXTREMITIES: Trace edema. MEDICATIONS: Of 09/22/2017 was reviewed. LABORATORY DATA: Of 09/21/2017, white count 7.4, hemoglobin 10.8. On 09/22/2017, sodium 136, potass ium 4.2, chloride 108, carbon dioxide 18, BUN 34, creatinine 3.69, glucose 73, calcium 7.9. ASSESSMENT AND PLAN: 1. Acute kidney injury on top of her chronic renal failure, slowly improving creatinine. Creatinine now is noted at 3.69 and this peaked at the value of 5.01. No indication for any dialytic intervent ion. Due to the mild shortness of breath, I decided to decrease IV fluid from 125-50 mL per minute. No indication for any dialytic intervention. 2. Hypertension - off her blood pressure medications. Continue to observe. Acceptable blood pressu re. We will recheck base met in a.m. ADDENDUM: Discussed case with Dr. Bowles.
[2017-09-22] MEDS: Heparin 5,000 UNITS/ML VIAL SC SCH ×2 (12:06→20:33)
[2017-09-22] MEDS: Aspirin 325 MG TAB PO SCH (12:08)
[2017-09-22] MEDS: Famotidine 20 MG TAB PO SCH ×2 (12:08→20:33)
[2017-09-22] MEDS: cefTRIAXone\\ROCEPHIN 1 GM, Syringe 0.4 ML in Sterile Water 9.6 ML SLOW IVP SCH (12:15)
--- NOTE | 2017-09-22 12:44 | PDOC.PN ---
- Subjective Encounter Start Date: 09/22/17 Encounter Start Time: 11:00 Subjective: no sob, is amb in room - Objective Resuscitation Status: Resuscitation Status FULL:Full Resuscitation MAR Reviewed: Yes Vital Signs & Weight: Vital Signs (12 hours) Temp Pulse Resp BP Pulse Ox 09/22/17 08:00 97.8 F 89 20 163/70 H 94 L Weight Weight 201 lb 9.6 oz I&O: 09/21/17 09/22/17 09/23/17 06:59 06:59 06:59 Intake Total 1700 2800 Output Total 400 Balance 1700 2400 Result Diagrams: 09/21/17 04:45 09/22/17 04:31 Additional Labs: Accuchecks 09/22/17 09/22/17 09/21/17 11:39 05:03 20:16 POC Glucose 105 91 136 H 09/21/17 16:11 POC Glucose 108 Phys Exam - Physical Examination HEENT: PERRLA, moist MMs Neck: no JVD, supple Respiratory: no wheezing, no rales Cardiovascular: RRR, no significant murmur Gastrointestinal: soft, non-tender, positive bowel sounds Musculoskeletal: no edema, pulses present Neurological: non-focal, moves all 4 limbs Psychiatric: A&O x 3 Dx/Plan (1) CARLOS MANUEL (acute kidney injury) Code(s): N17.9 - ACUTE KIDNEY FAILURE, UNSPECIFIED Status: Acute Comment: resolving (2) Hypertensive urgency Code(s): I16.0 - HYPERTENSIVE URGENCY Status: Resolved (3) DM type 2 (diabetes mellitus, type 2) Status: Chronic Qualifiers: Diabetes mellitus complication status: with kidney complications Diabetes mellitus complication detail: with chronic kidney disease Diabetes mellitus jail insulin use: without intermediate accountant use Chronic kidney disease stage: stage 3 (moderate) Qualified Code(s): E11.22 - Type 2 diabetes mellitus with diabetic chronic kidney disease; N18.3 - Chronic kidney disease, stage 3 ( moderate); N18.3 - Chronic kidney disease, stage 3 (moderate) (4) Dyslipidemia Code(s): E78.5 - HYPERLIPIDEMIA, UNSPECIFIED Status: Chronic (5) CKD (chronic kidney disease) Code(s): N18.9 - CHRONIC KIDNEY DISEASE, UNSPECIFIED Status: Chronic Qualifiers: Chronic kidney disease stage: stage 3 (moderate) Qualified Code(s): N18.3 - Chronic kidney disease, stage 3 (moderate) (6) UTI (urinary tract infection) Status: Acute Qualifiers: Urinary tract infection type: acute cystitis Hematuria presence: without hematuria Qualified Code(s): N30.00 - Acute cystitis without hematuria - Plan gentle iv hydration -: creatinine is slowly trending down -: no anti htn meds unless sbp >180 consistently -: ceftriaxone for uti, sensitive e.coli, but has carlos manuel -: to amb in hallway * . Review of Systems - Medications/Allergies Allergies/Adverse Reactions: Allergies Allergy/AdvReac Type Severity Reaction Status Date / Time Penicillins Allergy Verified 09/17/17 21:24 Medications: Current Medications Acetaminophen (Tylenol) 650 mg PO Q4H PRN PRN Reason: Headache/Fever or Pain Last Admin: 09/18/17 08:24 Dose: 650 mg Hydrocodone Bitart/Acetaminophen ([place] 10/325) 1 tab PO Q4H PRN PRN Reason: Moderate Pain (4-6) Hydrocodone Bitart/Acetaminophen ([place] 5/325) 1 tab PO Q4H PRN PRN Reason: Moderate Pain (4-6) Aspirin (Aspirin) 325 mg PO DAILY [facility] Last Admin: 09/21/17 09:56 Dose: 325 mg Dextrose/Water (Dextrose 50%) 25 gm SLOW IVP PRN PRN PRN Reason: Hypoglycemia Famotidine (Pepcid) 20 mg PO BID [facility] Last Admin: 09/21/17 20:16 Dose: 20 mg Glucagon (Glucagon) 1 mg IM PRN PRN PRN Reason: Hypoglycemia Heparin Sodium (Porcine) (Heparin) 5,000 units SC BID [facility] Last Admin: 09/21/17 20:16 Dose: 5,000 units Dextrose/Water (D5w) 1,000 mls @ 0 mls/hr IV .Q0M PRN; As Directed PRN Reason: Hypoglycemia Ceftriaxone Sodium 1 gm/ (Syringe 0.4 ml/ Sterile Water) 10 mls @ 120 mls/hr SLOW IVP Q24HR@1300 [facility] Last Admin: 09/21/17 13:55 Dose: 10 mls Sodium Chloride (Normal Saline 0.9%) 1,000 mls @ 50 mls/hr IV .Q20H [facility] Insulin Human Lispro (Humalog) 0 units SC .MILD SLIDING SCALE PRN PRN Reason: Mild Correctional Scale Last Admin: 09/18/17 17:48 Dose: 2 unit Labetalol HCl (Normodyne) 10 mg SLOW IVP Q4H PRN PRN Reason: SBP Greater Than 180 Ondansetron HCl (Zofran Odt) 4 mg PO Q6H PRN PRN Reason: Nausea/Vomiting Sodium Chloride (Flush - Normal Saline) 10 ml IVF Q12HR [facility] Last Admin: 09/21/17 20:16 Dose: Not Given Sodium Chloride (Flush - Normal Saline) 10 ml IVF PRN PRN PRN Reason: Saline Flush
[2017-09-23 04:44] LABS: Anion Gap 11 mmol/L (10-20); BUN (Urea Nitrogen) 30 mg/dL (9.8-20.1); Calc. Creatinine Clearance 21 mL/min (70-130); Calcium 8.3 mg/dL (7.8-10.44); Carbon Dioxide 22 mmol/L (23-31); Chloride 113 mmol/L (98-107); Estimated GFR-MDRD 14; Glucose 98 mg/dL (83-110); Potassium 4.3 mmol/L (3.5-5.1); Sodium 142 mmol/L (136-145)
[2017-09-23] MEDS: Sodium Chloride 0.9% 1,000 ML IV SCH (05:20)
[2017-09-23] MEDS: Aspirin 325 MG TAB PO SCH (08:34)
[2017-09-23] MEDS: Famotidine 20 MG TAB PO SCH (08:34)
[2017-09-23] MEDS: Heparin 5,000 UNITS/ML VIAL SC SCH (08:35)
[2017-09-23 08:38] VITALS: BP 170/68; TEMP 97.9
--- NOTE | 2017-09-23 11:09 | PDISCHARGE ---
Discharge - Disposition Disposition: HOME - Patient Instructions Pre-Printed Education: Understanding Urinary Tract Infections (UTIs), ED Diabetes, General Info Care Plan Goals: ECHO this admission: 60-65% ejection fraction with diastolic (relaxation) dysfunction. Please provide education below. Patient should monitor self for any symptoms of heart failure resulting from diastolic dysfunction: shortness of breath, dizziness, swelling, difficulty lying flat. 0 TAKE CONTROL OF HEART FAILURE 0 Together we can! o Weigh yourself daily every morning after going to the bathroom. Call your health care provider if you gain 2 pounds in a day or 5 pounds in a week. Use the daily log provided to record your weight. o Eat no more than 2 grams (2000mg) sodium (salt) a day. Read food labels and throw away the salt shaker! o Your personal fluid limit: Only if instructed by a provider. o Take your Medications as prescribed. Do not skip doses. If you can't afford your medications, please let your doctor know. o Watch for worsening heart failure symptoms such as increased swelling or increased shortness of breath with activity or at rest. o Follow-up with your primary care provider within 1 week of discharge from the hospital. o Maintain activity as tolerated with frequent rest periods. o If you smoke - smoking puts stress on your heart. We can help you quit smoking, just ask. o Expect a follow up call in one to three days if you are being discharged to your home. Please go to heart.org/myhfguide to learn even more about managing your heart failure using the free interactive workbook. - Referrals and PCP Follow-Up Referrals and PCP Follow-Up: Lynne Sam-Nitish Hillman MD [Primary Care Provider] - - Activity Instructions Activity:: Activity as Tolerated - Nourishment Instructions Nourishment:: Heart Healthy Diet
--- NOTE | 2017-09-23 11:30 | DIS ---
DATE OF ADMISSION: 09/17/2017 DATE OF DISCHARGE: 09/23/2017 Admitting Dx: slurred sheech, Headache, HTN, DM II, Hyperlipidemia, CKD 3 Discharge Dx: slurred speech resolved, headache resolved, HTN stable, DM II stable, hyperlipidemia stable, CKd 3 stable HOSPITAL COURSE: Patient was a 77-year-old female who was admitted to the Internal Medicine team at [facility] status post slurred speech and headache. The patient was found to have significantly high blood pressure, history of diabetes, hypertension, hyperlipidemia and chronic kidney disease 3. The patient's baseline creatinine was found to be around 1.8; however, at point in time of admission, the patient's creatinine was found to be above 5. The patient was found to be significantly dehydrated, low blood pressure and creatinine peaked at 5. The patient had all the blood pressure medications held. Blood pressure raised. Creatinine improved. At the point of time of discharge, creatinine was trending downwards at a level of 3.18. Patient was ambulatory with no mechanical deficits whatsoever. She states that she feels like she was back to her baseline and ready to go home. DISPOSITION: Home. FOLLOWUP: Follow up with PCP. MEDICATIONS: Resume home medications. The patient advised to hold all blood pressure medications if her systolic blood pressure drops below 120. DIET: Cardiac diet, low fat, low calorie, high fiber. ACTIVITY: As tolerated. CONDITION: Stable. Case and plan discussed with the patient at length. She understands and agrees with this plan. WES
--- NOTE | 2017-09-23 12:35 | PRG ---
DATE OF SERVICE: 09/23/2017 ASSESSMENT AND PLAN: Ms. Jurado is a 77-year-old white female who was seen for her acute kidney in [facility] on top of her chronic renal failure. She had a presumptive hemodynamically mediated renal dysfu nction. She was empirically given IV fluid. This slowly improved her creatinine from a peak of 5.0 to a most recent value of 3.18. Please note the IV fluid was slowed down yesterday and used to some degree of edema. SUBJECTIVE: No complaints today, no chest pain or no shortness of breath. PHYSICAL EXAMINATION: VITAL SIGNS: Blood pressure is 170/68, heart rate 69, respiratory rate 20, temperature 97.9, pulse o x 91%. GENERAL: Noted to be awake, alert, comfortable, not in distress. SKIN: Adequate turgor. HEENT: She has pinkish conjunctivae, anicteric sclerae. NECK: No neck mass, no carotid bruits, no JVD. CHEST: No deformities. LUNGS: Clear breath sounds. HEART: Normal sinus rhythm. No murmur, no gallops, no rubs. ABDOMEN: Globular, soft, nontender, no masses. EXTREMITIES: No edema, no deformities. MEDICATIONS: Of 09/23/2017 was reviewed. LABORATORY DATA: Of 09/23/2017, sodium 142, potassium 4.3, chloride 113, carbon dioxide 22, BUN 30, creatinine 3.18, GFR 14 mL per minute. Calcium 8.3. White count 7.4, hemoglobin 10.8. ASSESSMENT AND PLAN: 1. Hypertension, previously blood pressure medication was placed on hold due to the low blood pressu re. My plan is to resume at least one of her home medications. The patient previously was taking mi noxidil 10 mg daily, Calan SR 240 mg once a day and Cardura 8 mg tab once daily. I will probably res ume back Calan SR 240 mg once a day today. At outpatient, she can be followed up and resume the rest of her BP medications as needed. 2. Acute kidney injury - as previously mentioned hemodynamically mediated renal dysfunction. The kathrin falk's renal function is much improved with IV hydration. There is no indication for any dialytic i ntervention. 3. Hypertension. Resume back Calan SR 240 mg tab once a day. From the renal point of view, she can be discharged anytime. We will follow her up at the [facility]al [facility].
[2017-09-23] MEDS: cefTRIAXone\\ROCEPHIN 1 GM, Syringe 0.4 ML in Sterile Water 9.6 ML SLOW IVP SCH (14:02)
== END 2017-09-23 13:25 | disposition home or self-care (01) | DRG 305 ==
LOC: ERS 16:47 → 2NO 21:11 → T4-A 09-20 16:14
PROVIDERS: ADMIT Internal Medicine; ATTEND Internal Medicine
DX: I16.0 Hypertensive urgency (principal); N17.9 Acute kidney failure, unspecified; E11.21 Type 2 diabetes mellitus with diabetic nephropathy; N30.00 Acute cystitis without hematuria; E86.0 Dehydration; E11.22 Type 2 diabetes mellitus with diabetic chronic kidney disease; I12.9 Hypertensive chronic kidney disease with stage 1 through stage 4 chronic kidney disease, or unspecified chronic kidney disease; N18.3 Chronic kidney disease, stage 3 (moderate); E78.5 Hyperlipidemia, unspecified; Z85.3 Personal history of malignant neoplasm of breast; Z85.42 Personal history of malignant neoplasm of other parts of uterus; Z88.0 Allergy status to penicillin
CPT/HCPCS: 36415; 36416; 76770; 80048; 81001; 82553; 82570; 83036; 83735; 84300; 84484; 85025; 87040; 87077; 87086; 87186; 93306; 96374; A4216; J0360; J0696; J1644; J1650

== ENCOUNTER 2018-01-16 08:36 | Outpatient (CLI) | payer MEDICARE, OTHER | END 2018-01-16 08:37 | disposition home or self-care (01) | LOC: BICMAMMO 08:36 | PROVIDERS: ATTEND Family Medicine | DX: Z08 Encounter for follow-up examination after completed treatment for malignant neoplasm (principal); Z90.12 Acquired absence of left breast and nipple; Z85.3 Personal history of malignant neoplasm of breast | CPT/HCPCS: 77065; G0279 ==

== ENCOUNTER 2018-12-12 09:24 | Outpatient (CLI) | payer MEDICARE, OTHER ==
--- NOTE | 2018-12-12 10:21 | SJPRAD ---
CHEST TWO VIEWS: HISTORY: Shortness of breath. COMPARISON: 06/07/2018 FINDINGS: The heart is mildly enlarged but stable from prior exam. There is mild vascular engorgement. There are small bilateral effusions, slightly larger on the right. Similar findings were present on the pr ior study. No focal lung infiltrate. Osseous structures are unremarkable with mild degenerative changes again n oted in the spine. IMPRESSION: There is mild cardiomegaly and mild vascular engorgement. Small bilateral effusions. Findings are s imilar to the prior study. POS: [facility]
[2018-12-12 16:21] LABS: #Basophils 0.1 thou/uL (0.0-0.2); #Eosinphils 0.3 thou/uL (0.0-0.7); #Lymphocytes 1.4 thou/uL (1.20-3.40); #Monocytes 0.6 thou/uL (0.11-0.59); #Neutrophils 5.6 thou/uL (1.40-6.50); %Basophils 0.7 % (0.0-1.0); %Eosinophils 3.9 % (0.0-10.0); %Lymphocytes 17.9 % (21.0-51.0); %Monocytes 7.6 % (0.0-10.0); %Neutrophils 69.9 % (42.0-75.0); Hemoglobin 11.2 g/dL (12.0-16.0); Mean Corpuscular HGB CONC 32.5 g/dL (32.0-36.0); Mean Corpuscular Hemoglobin 30.2 pg (27.0-31.0); Mean Corpuscular Volume 93.1 fL (78.0-98.0); Mean Platelet Volume 8.7 fL (7.4-10.4); Platelet Count 200 thou/uL (130-400); RBC Distribution Width 13.2 % (11.5-14.5); Red Blood Cell (RBC) Count 3.69 mill/uL (4.20-5.40)
[2018-12-12 17:39] LABS: Hemoglobin A1c 5.1 % (4.0-6.0)
[2018-12-12 18:05] LABS: ALT (SGPT) 23 U/L (8-55); AST (SGOT) 19 U/L (5-34); Albumin 4.2 g/dL (3.4-4.8); Alkaline Phosphatase 58 U/L (40-150); Anion Gap 12 mmol/L (10-20); BUN (Urea Nitrogen) 25 mg/dL (9.8-20.1); Bilirubin, Total 0.5 mg/dL (0.2-1.2); Calc. Creatinine Clearance 0 mL/min (70-130); Calcium 9.5 mg/dL (7.8-10.44); Carbon Dioxide 27 mmol/L (23-31); Cardiac Risk 2.5 (Less than 4.5); Chloride 108 mmol/L (98-107); Cholesterol 133 mg/dl (< 200 Desired); Estimated GFR-MDRD 26; Globulin 2.5 g/dL (2.4-3.5); Glucose 119 mg/dL (83-110); HDL Cholesterol 53 mg/dL (>60 Neg Risk); LDL Cholesterol, Calculated 50 mg/dL; Potassium 4.3 mmol/L (3.5-5.1); Protein, Total 6.7 g/dL (6.0-8.3); Sodium 143 mmol/L (136-145); Triglycerides 148 mg/dL (Less than 150)
== END 2018-12-12 09:25 | disposition home or self-care (01) ==
LOC: MWLC RAD 09:24
PROVIDERS: ATTEND Family Medicine
DX: R06.02 Shortness of breath (principal); I51.7 Cardiomegaly; J90 Pleural effusion, not elsewhere classified
CPT/HCPCS: 80053; 80061; 83036; 85025

== ENCOUNTER 2019-01-24 07:43 | Outpatient (CLI) | payer MEDICARE, OTHER ==
--- NOTE | 2019-01-24 08:37 | MMO ---
Bilateral MAMMO Bilat Screen [facility]. CLINICAL HISTORY: Patient is 78 years old and is seen for screening. The patient has the following family history of breast cancer: mother. The patient has a history of uterine cancer at age 58. 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 VIEWS: The views performed were: right craniocaudal with tomosynthesis and right mediolateral oblique with tomosynthesis. FILMS COMPARED: The present examination has been compared to prior imaging studies performed at [facility] on 01/16/2018, and at [facility] on 09/29/2009, 01/21/2011, 02/25/2013 and 05/18/2015. MAMMOGRAM FINDINGS: There are scattered fibroglandular densities. There are stable benign appearing calcifications seen in the right breast. There are no suspicious masses, suspicious calcifications, or new areas of architectural distortion. IMPRESSION: THERE IS NO MAMMOGRAPHIC EVIDENCE OF MALIGNANCY. A ROUTINE FOLLOW-UP MAMMOGRAM IN 1 YEAR IS RECOMMENDED. THE RESULTS OF THIS EXAM WERE SENT TO THE PATIENT. ACR BI-RADS Category 2 - Benign finding MAMMOGRAPHY NOTE: 1. A negative mammogram report should not delay a biopsy if a dominant of clinically suspicious mass is present. 2. Approximately 10% to 15% of breast cancers are not detected by mammography. 3. Adenosis and dense breasts may obscure an underlying neoplasm.
== END 2019-01-24 07:44 | disposition home or self-care (01) ==
LOC: BICMAMMO 07:43
PROVIDERS: ATTEND Family Medicine
DX: Z12.31 Encounter for screening mammogram for malignant neoplasm of breast (principal); Z80.3 Family history of malignant neoplasm of breast; Z85.42 Personal history of malignant neoplasm of other parts of uterus; Z90.12 Acquired absence of left breast and nipple
CPT/HCPCS: 77063; 77067